=== PATIENT | male | born 1990 | race Caucasian/White ===

== ENCOUNTER 2017-05-11 13:45 | Emergency (ER) | payer MEDICAID ==
[2017-05-11 14:41] LABS: % IMMATURE GRANULYOCYTES 0.1 % (0.0-1.1); ABSOLUTE IMMATURE GRANULOCYTES 0.01 10^3/uL (0.00-0.10); ADD DIFF? NO; ADD MORPH? NO; ADD SCAN? NO; ATYPICAL LYMPHOCYTE FLAG 50 (0-99); FRAGMENT RBC FLAG 0 (0-99); HEMATOCRIT 44.3 % (40.0-51.0); HEMOGLOBIN 15.1 g/dL (13.7-17.5); LEFT SHIFT FLG 0 (0-99); LIPEMIA HEMOLYSIS FLAG 90 (0-99); MEAN CELL HEMOGLOBIN 32.4 pg (27.9-34.1); MEAN CELL HEMOGLOBIN CONCENTR. 34.1 g/dL (32.4-36.7); MEAN CELL VOLUME 95.1 fL (81.5-99.8); MEAN PLATELET VOLUME 10.2 fL (8.7-11.7); PLATELET CLUMPS FLAG 10 (0-99); PLATELET COUNT 204 10^3/uL (150-400); RED BLOOD CELL COUNT 4.66 10^6/uL (4.40-6.38); RED CELL DISTRIBUTION WIDTH 12.9 % (11.5-15.2)
--- NOTE | 2017-05-11 14:47 | EDPHY ---
H & P Stated Complaint: alcohol/meth w/d HPI/ROS: CHIEF COMPLAINT: Methamphetamine and alcohol abuse, wants detox HISTORY OF PRESENT ILLNESS: Patient presents here with reports of methamphetamine and alcohol abuse. He is here asking for help to detox. He reports a long history of alcohol and substance abuse. He uses methamphetamine by injection daily if not more than once daily. He admits to at least 1 pt per day of various alcohol intake. He has been inpatient rehab approximately 2 months ago. He did well for short period time and then relapsed. He has had no thoughts of self-harm or harm towards others. He does have occasional paranoia per the sister outside. But no chest pain. No lethargy. No rashes or lesions. No shortness of breath. No fever chills. No other associated complaints or modifying factors. REVIEW OF SYSTEMS: Ten systems reviewed and are negative unless otherwise noted in the HPI PERTINENT MEDICAL HISTORY: Substance abuse involving methamphetamine and alcohol SOCIAL HISTORY: Smoker, substance abuse. No other medical diagnoses EXAMINATION General Appearance: Alert, no distress Head: normocephalic, atraumatic Eyes: Pupils equal and round, no conjunctival pallor or injection ENT, Mouth: Mucous membranes moist. Uvula midline Neck: Normal inspection, supple, non-tender Respiratory: Lungs are clear to auscultation. No wheezing, rhonchi or crackles. Cardiovascular: Regular rate and rhythm. No murmur. Gastrointestinal: Abdomen is soft and nontender Back: non-tender, no bony abnormalities Neurological: GCS 15. A&O, nonfocal, normal gait Skin: Warm and dry, no rash. No lesions of the palms of the hands, soles of the feet or finger-nose. Extremities: Nontender, no pedal edema Psychiatric: Flat affect. Admits to substance abuse involving methamphetamine and alcohol. Denies suicidal ideation. Denies suicide attempt. Denies homicidal ideation DIFFERENTIAL DIAGNOSES: Including but not limited to substance abuse, alcohol detox, alcohol withdrawal , dehydration, depression, suicidal ideation, paranoia MDM: 2:45 p.m. Abuse of methamphetamine and alcohol. The patient denies any suicidal ideation or homicidal ideation. He admits using methamphetamine daily and at least 1 pt of alcohol a day. He is here asking for detox. He is in no acute distress, resting comfortably. Laboratory studies are pending 3:20 p.m. Patient remained stable. CBC is unremarkable. The urine drug screen is pending at this time. His serum alcohol level is 173. 3:30 p.m. I have re-evaluated the patient. He remains stable and in no acute distress. He remains nonsuicidal a non homicidal. We discussed discharge from here and proceeding to the [facility] for detox from alcohol. A Librium prepack will be provided for them to administer per protocol. He is to discuss with them further rehabilitation for the methamphetamine abuse. Additionally, I will provide the number for the [facility] for them to discuss outpatient psychiatric evaluation. He is to contact 911 or return here should he have any thoughts of self-harm. Both he and his sister are comfortable with this plan part he is discharged in stable condition. I have discussed the case with Dr. Dominguez, and he agrees with this plan. SUPERVISION: Patient was evaluated in conjunction with the supervising physician. Please see their note for details. Source: Patient, Family Exam Limitations: No limitations - Personal History Current Tetanus Diphtheria and Acellular Pertussis (TDAP): Yes - Medical/Surgical History Hx Asthma: No Hx Chronic Respiratory Disease: No Hx Diabetes: No Hx Cardiac Disease: No Hx Renal Disease: No Hx Cirrhosis: No Hx Alcoholism: Yes Hx HIV/AIDS: No Hx Splenectomy or Spleen Trauma: No Other PMH: IV drug user - Social History Smoking Status: Heavy smoker Constitutional: Initial Vital Signs Temperature (C) 98.8 F 05/11/17 14:02 Heart Rate 107 H 05/11/17 14:02 Respiratory Rate 16 05/11/17 14:02 Blood Pressure 102/60 05/11/17 14:02 O2 Sat (%) 95 05/11/17 14:02 O2 Delivery Mode Room Air Allergies/Adverse Reactions: No Known Drug Allergies Allergy (Verified 05/11/17 14:08) Home Medications: Medication Instructions Recorded NK [No Known Home Meds] 05/11/17 Medical Decision Making - Data Points Laboratory Results: Laboratory Results 05/11/17 14:35 05/11/17 14:35 05/11/17 05/11/17 05/11/17 14:35 14:35 14:25 WBC 6.81 10^3/uL 10^3/uL (3.80-9.50) RBC 4.66 10^6/uL 10^6/uL (4.40-6.38) Hgb 15.1 g/dL g/dL (13.7-17.5) Hct 44.3 % % (40.0-51.0) MCV 95.1 fL fL (81.5-99.8) MCH 32.4 pg pg (27.9-34.1) MCHC 34.1 g/dL g/dL (32.4-36.7) RDW 12.9 % % (11.5-15.2) Plt Count 204 10^3/uL 10^3/uL (150-400) MPV 10.2 fL fL (8.7-11.7) Neut % (Auto) 54.3 % % (39.3-74.2) Lymph % (Auto) 33.0 % % (15.0-45.0) [place] % (Auto) 5.3 % % (4.5-13.0) Eos % (Auto) 6.6 % % (0.6-7.6) Baso % (Auto) 0.7 % % (0.3-1.7) Nucleat RBC Rel Count 0.0 % % (0.0-0.2) Absolute Neuts (auto) 3.69 10^3/uL 10^3/uL (1.70-6.50) Absolute Lymphs (auto) 2.25 10^3/uL 10^3/uL (1.00-3.00) Absolute Monos (auto) 0.36 10^3/uL 10^3/uL (0.30-0.80) Absolute Eos (auto) 0.45 10^3/uL H 10^3/uL (0.03-0.40) Absolute Basos (auto) 0.05 10^3/uL 10^3/uL (0.02-0.10) Absolute Nucleated RBC 0.00 10^3/uL 10^3/uL (0-0.01) Immature Gran % 0.1 % % (0.0-1.1) Immature Gran # 0.01 10^3/uL 10^3/uL (0.00-0.10) Sodium 146 mEq/L H mEq/L (134-144) Potassium 3.7 mEq/L mEq/L (3.5-5.2) Chloride 108 mEq/L mEq/L (97-110) Carbon Dioxide 22 mEq/l mEq/l (22-31) Anion Gap 16 mEq/L mEq/L (8-16) BUN 13 mg/dL mg/dL (7-23) Creatinine 0.9 mg/dL mg/dL (0.7-1.3) Estimated GFR > 60 Glucose 124 mg/dL H mg/dL (70-100) Calcium 9.1 mg/dL mg/dL (8.5-10.4) Urine Opiates Screen NEGATIVE ng/mL ng/mL (NEGATIVE) Urine Barbiturates NEGATIVE ng/mL ng/mL (NEGATIVE) Ur Phencyclidine Scrn NEGATIVE ng/mL ng/mL (NEGATIVE) Ur Amphetamines Screen Pending U Benzodiazepines Scrn 235 ng/mL ng/mL (NEGATIVE) Urine Cocaine Screen NEGATIVE ng/mL ng/mL (NEGATIVE) U Marijuana (THC) Screen NEGATIVE ng/mL ng/mL (NEGATIVE) Ethyl Alcohol 172 mg/dL H mg/dL (0-10) Departure - Departure Referrals: NONE *PRIMARY CARE P,. [Primary Care Provider] - As per Instructions
[2017-05-11 15:10] LABS: ANION GAP 16 mEq/L (8-16); CALCIUM 9.1 mg/dL (8.5-10.4); CARBON DIOXIDE 22 mEq/l (22-31); CHLORIDE 108 mEq/L (97-110); CREATININE 0.9 mg/dL (0.7-1.3); ETHANOL SERUM 172 mg/dL (0-10); GLOMERULAR FILTRATION RATE > 60; GLUCOSE 124 mg/dL (70-100); POTASSIUM 3.7 mEq/L (3.5-5.2); SODIUM 146 mEq/L (134-144)
[2017-05-11 15:19] LABS: PHENCYCLIDINE URINE BCH < 6 ng/ml (NEGATIVE); PHENCYCLIDINE URINE BCH NEGATIVE (NEGATIVE); TETRAHYDROCANNABINOL URINE 25 ng/mL (NEGATIVE); TETRAHYDROCANNABINOL URINE NEGATIVE (NEGATIVE)
[2017-05-11] MEDS ORDERED: CHLORDIAZEPOXIDE 25MG PREPK#6 BTL TAKEHOME ONE (15:28)
[2017-05-11 15:56] VITALS: BP 135/76; PULSE 73; RESP 15; TEMP 97.4; O2SAT 93
== END 2017-05-11 15:48 | disposition home or self-care (01) ==
DX: F19.10 Other psychoactive substance abuse, uncomplicated (principal); F17.200 Nicotine dependence, unspecified, uncomplicated
CPT/HCPCS: 80307; G0480